=== PATIENT | female | born 1970 | race Caucasian/White ===

== ENCOUNTER 2019-07-11 11:30 | Emergency (ER) ==
[~2019-07-11] VITALS: Ht 180.3 cm; Wt 51.9 kg
[2019-07-11] MEDS ORDERED: GABA300C10 PO (12:04)
[2019-07-11] MEDS ORDERED: LEVO75TA PO (12:04)
--- NOTE | 2019-07-11 12:20 | NUR ---
Pt ambulatory to ED from home accomp by mother. multiple complaints. moved here from [place] 2 months ago. no doctor here. out of synthroid. sts hasn't slept in 4 days, told photo intern she is seeing things. c/o fatigue, cold. seen at [facility] for 30 lb weight loss in one month. 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 [facility] had PNA x1 year in [place]. Dr. Santiago in room for eval.plan for labs/ua/cxr. call barajas in reach. nsr on monitor 70s. vss.
[2019-07-11 12:35] LABS: BASOPHILS # (AUTO) 0.03 x10^3/uL (0-0.1); BASOPHILS % (AUTO) 0 % (0-1); EOSINOPHILS # (AUTO) 0.08 x10^3/uL (0-0.4); EOSINOPHILS % (AUTO) 1 % (1-7); LYMPHOCYTES % (AUTO) 17 % (22-44); MD NO; MEAN CORPUSCULAR HEMOGLOBIN 24.2 pg (27.0-34.8); MEAN CORPUSCULAR VOLUME 77.9 fL (80-100); MEAN PLATELET VOLUME 9.9 fL (7.4-10.4); MONOCYTES # (AUTO) 0.26 x10^3/uL (0.2-0.8); MONOCYTES % (AUTO) 2 % (2-9); NEUTROPHILS # (AUTO) 10.14 x10^3/uL (1.8-6.8); NEUTROPHILS % (AUTO) 80 % (42-75); PLATELET COUNT 385 x10^3/uL (130-400); RED BLOOD COUNT 5.97 x10^6/uL (3.82-5.3); RED CELL DISTRIBUTION WIDTH 22.9 % (9.6-15.2)
[2019-07-11 12:40] LABS: ALBUMIN 3.8 g/dL (3.4-5.0); ANION GAP 8 mmol/L (5-15); CALCIUM 9.7 mg/dL (8.5-10.1); CHLORIDE 110 mmol/L (98-107)
[2019-07-11 12:51] LABS: ALANINE AMINOTRANSFERASE 27 U/L (12-78); ALKALINE PHOSPHATASE 130 U/L (45-117); BILIRUBIN,TOTAL 0.5 mg/dL (0.2-1.0); CREATININE 0.91 mg/dL (0.55-1.02); TOTAL PROTEIN 8.5 g/dL (6.4-8.2)
[2019-07-11 12:52] LABS: SALICYLATE LEVEL < 1.7 mg/dL (2.8-20.0)
--- NOTE | 2019-07-11 13:14 | NUR ---
vss. waiting on ua. pt resting, call barajas in reach, NAD.
[2019-07-11 13:37] LABS: CULTURE INDICATED? NO; MICROSCOPIC INDICATED
[2019-07-11 13:42] LABS: AMPHETAMINE SCREEN, URINE Positive (Negative); BARBITURATE SCREEN, URINE Negative (Negative); BENZODIAZEPINE SCREEN, URINE Negative (Negative); CANNABINOID SCREEN, URINE Negative (Negative)
[2019-07-11 13:43] LABS: COCAINE SCREEN, URINE Negative (Negative); METHADONE SCREEN, URINE Negative (Negative); OPIATE SCREEN, URINE Negative (Negative)
[2019-07-11 14:17] VITALS: BP 110/77
--- NOTE | 2019-07-11 14:18 | NUR ---
utox +meth. aware. pt resting in bed, call barajas in reach, NAD.
== END 2019-07-11 14:49 | disposition home or self-care (01) ==
LOC: ED 13:36
DX: G47.00 Insomnia, unspecified (principal); R44.3 Hallucinations, unspecified; F15.10 Other stimulant abuse, uncomplicated; E03.9 Hypothyroidism, unspecified
CPT/HCPCS: 36415; 71045; 80053; 80307; 81001; 85025; 93005; 99284